=== PATIENT | born 2000 ===

== ENCOUNTER 2024-08-14 13:01 | Emergency (ER) | payer SELFPAY ==
[2024-08-14 13:07] VITALS: BP 124/84; PULSE 73; RESP 16; TEMP 36.6; O2SAT 98
--- NOTE | 2024-08-14 13:33 | ED.GENADUL_ITS ---
Discharge Plan Disposition Patient Disposition: Home Condition: Stable Discharge Details Chief Complaint: Patient Exposure Risk Clinical Impression: Accidental hypodermic needlestick injury Primary Care Provider: Unknown,Unknown ED Provider: Mauri Plasencia Discharge Instructions Additional Instructions: Follow-up with occupational medicine. If you develop signs of infection such as spreading redness from the wound return to the emergency department for reevaluation HPI General Mode of arrival: ambulatory . Date/Time Provider Initiated Documentation: 08/14/24 13:13 . Limitations to Documentation: no limitations . Information obtained by: patient . History of Present Illness 24 year old U presents to the emergency department with the chief complaint of right index finger needle stick, described as mild, Patient started experiencing this hour(s) (1) and it has been constant. No relieving factors improve symptom(s), No exacerbating factors reported . Patient notes no other symptoms.. General Stated Complaint: Patient Exposure Risk BETY: 2 Review of Systems All systems reviewed & are unremarkable except as noted in HPI and below Constitutional Constitutional: Denies weakness Integumentary/Breasts Skin/Breast: Denies rash Neurologic Neurologic: Denies weakness Exam Const General: no acute distress Orientation: alert HENRI Head: normal to inspection Ears: external ears normal General nose exam: external nose normal Mouth: moist mucous membranes Eyes General: appearance normal, both eyes and all related structures Neck Neck: normal visual inspection Resp Effort & Inspection: normal respiratory effort and able to speak in complete sentences Cardio Rate: regular rate Skin General skin exam: no rashes or lesions noted Neuro General: patient alert and patient oriented x3 Extrem General: normal to inspection, full ROM and capillary refill normal Psych Mental Status: mental status grossly normal Course Vital Signs Vital signs: Vital Signs Temperature 36.6 C 08/14/24 13:07 Pulse 73 08/14/24 13:07 Respiratory Rate 16 08/14/24 13:07 Blood Pressure 124/84 08/14/24 13:07 Pulse Oximetry 98 08/14/24 13:07 Temperature 36.6 C 08/14/24 13:07 Temperature Source Oral 08/14/24 13:07 Pulse 73 08/14/24 13:07 Respiratory Rate 16 08/14/24 13:07 Blood Pressure 124/84 08/14/24 13:07 Blood Pressure Position Sitting 08/14/24 13:07 Pulse Oximetry 98 08/14/24 13:07 Oxygen Delivery Method Room Air 08/14/24 13:07 Oxygen Flow Rate 0 08/14/24 13:07 Medical Decision Making 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 She cleaned it and not fall or sustain other injuries. Came here for an evaluation to the needlestick. She otherwise feels well and has no complaint. She has no evidence of broken skin on her index finger, no bleeding. Discussed risks of transmission such as HIV and at this time she declines to have postexposure prophylaxis which I feel is reasonable. She is can follow-up with occupational medicine and return precautions given Quality:[facility] Health Related Social Needs: No Data to Display [facility], [facility] All Active Problems (Updated 08/14/24 @ 13:33 by Mauri Plasencia MD) Accidental hypodermic needlestick injury (Acute) Social History Smoking/Tobacco Use Status: Never Smoking risk assessment performed?: Yes Alcohol Intake: current Alcohol Intake frequency: holidays/special occasions only Alcohol type: beer, wine and hard liquor Substance use type: does not use PAWSS Have you Been Recently Intoxicated or Drunk Within the Last 30 days?: No Have you Ever Experienced Previous Episodes of Alcohol Withdrawal?: No Have you ever Experienced Withdrawal Seizures?: No Have you ever Experienced Delirium Tremens(DT)s?: No Have you ever undergone Alcohol Rehabilitation Treatment (i.e, inpt ot outpatient treatment programs)?: No Have you ever Experienced Blackouts?: No Have you ever Combined Alcohol with other Downers within the last 90 days?: No Have you ever Combined Alcohol with any other Substance of Abuse during the last 90 days?: No Positive Blood Alcohol level on Presentation? [PCS.BAL]: No Evidence of Increased Autonomic Activity (i.e. HR>120, tremor, sweating, agitation, nausea)?: No Result: 0
[2024-08-14 13:43] VITALS: BP 126/77; PULSE 72; RESP 16; O2SAT 100
== END 2024-08-14 14:04 | disposition home or self-care (01) ==
PROVIDERS: Emergency Provider Emergency Medicine
DX: S61.230A Puncture wound without foreign body of right index finger without damage to nail, initial encounter (principal); W46.0XXA Contact with hypodermic needle, initial encounter; Y99.0 Civilian activity done for income or pay
CPT/HCPCS: 99283; 99282